=== PATIENT | male | born 1975 | race Caucasian/White ===

== ENCOUNTER 2017-04-05 17:42 | Emergency (ER) | payer BC ==
[~2017-04-05] VITALS: Ht 182.9 cm; Wt 84.0 kg
[~2017-04-05 17:42] MED LIST: BACTRIM DS 8001 TAB PO; CEPHALEXIN500 M1 PO; NORCO 325 MG-7.1 TAB PO
[2017-04-05 17:44] VITALS: TEMP 98.1
[2017-04-05 19:03] LABS: BASO # 0.1 (0.0-0.2); BASO % 0.6 % (0.0-2.0); EOS # 0.2 (0.0-0.7); GRAN # 10.2 (1.4-6.5); GRAN % 62.8 % (42.2-75.2); HEMATOCRIT 51.8 % (42.0-52.0); LYMPH # 4.7 (1.2-3.4); MEAN CELL VOLUME 82 fl (80.0-100.0); MEAN CORPUSCULAR HEMOGLOBIN 30 pg (27.0-31.0); MEAN CORPUSCULAR HGB CONC 37 g/dl (33.0-37.0); MEAN PLATELET VOLUME 8.6 fl (7.4-10.4); MONO % 6.2 % (1.7-9.3); PLATELET COUNT 380 K/mm3 (130-400); REDCELL DISTRIBUTION WIDTH-CV 12.2 % (11.5-14.5); WHITE BLOOD COUNT 16.2 K/mm3 (4.8-10.8)
[2017-04-05 19:04] LABS: HEMOGLOBIN 18.9 g/dl (13.5-18.0)
[2017-04-05 19:13] LABS: ADJUSTED CALCIUM 9.8 mg/dL (8.4-10.2); ALBUMIN 5.7 gm/dL (3.5-5.0); BILIRUBIN,TOTAL 1.2 mg/dL (0.0-1.0); CALCIUM 11.2 mg/dL (8.4-10.2); CREATININE, serum 2.58 mg/dL (0.66-1.25); POTASSIUM 3.6 mmol/L (3.4-5.0); TOTAL PROTEIN 9.6 gm/dL (6.4-8.2)
[2017-04-05 20:57] LABS: HYALINE CAST >12 /lpf; PH 5 (5-8); SQUAMOUS EPITHELIAL 0-2 /hpf; URINE APPEARANCE Clear; URINE BACTERIA None Seen /hpf; URINE BILIRUBIN Negative (NEGATIVE); URINE BLOOD 1+ (NEGATIVE); URINE COLOR Yellow; URINE GLUCOSE Negative (NEGATIVE); URINE KETONE Trace (NEGATIVE); URINE RBC 0-2 /hpf; URINE UROBILINOGEN Negative (NEGATIVE); URINE WBC 0-2 /hpf
[2017-04-05 21:32] VITALS: BP 128/92; PULSE 97
== END 2017-04-05 21:32 | disposition home or self-care (01) ==
LOC: COL.ER 17:42
PROVIDERS: Emergency Medicine
DX: E86.0 Dehydration (principal); R10.84 Generalized abdominal pain; N28.9 Disorder of kidney and ureter, unspecified; T67.9XXA Effect of heat and light, unspecified, initial encounter; X30.XXXA Exposure to excessive natural heat, initial encounter
CPT/HCPCS: J3360; J7030

== ENCOUNTER 2018-10-03 08:56 | Emergency (ER) | payer BC ==
[~2018-10-03] VITALS: Ht 182.9 cm; Wt 84.1 kg
[2018-10-03 09:29] LABS: COLLECTION METHOD CLEAN CATCH
[2018-10-03 10:01] LABS: PH 7 (5-8); URINE APPEARANCE Clear; URINE COLOR Yellow
[2018-10-03 10:02] LABS: SQUAMOUS EPITHELIAL 0-2 /hpf; URINE BACTERIA None Seen /hpf; URINE BILIRUBIN Negative (NEGATIVE); URINE BLOOD 1+ (NEGATIVE); URINE GLUCOSE Negative (NEGATIVE); URINE KETONE Negative (NEGATIVE); URINE LEUKOCYTE ESTERASE Negative (NEGATIVE); URINE NITRATE Negative (NEGATIVE); URINE PROTEIN(semi-quant) Negative (NEGATIVE); URINE RBC None Seen /hpf; URINE UROBILINOGEN Negative (NEGATIVE)
[2018-10-03 10:10] LABS: BASO # 0.1 (0.0-0.2); BASO % 0.7 % (0.0-2.0); EOS # 0.3 (0.0-0.7); EOS % 1.5 % (0-4.0); GRAN # 14.7 (1.4-6.5); GRAN % 73.9 % (42.2-75.2); HEMATOCRIT 49.2 % (42.0-52.0); HEMOGLOBIN 16.7 g/dl (13.5-18.0); LYMPH # 3.8 (1.2-3.4); LYMPH % 19.2 % (20.0-51.0); MEAN CELL VOLUME 88 fl (80.0-100.0); MEAN CORPUSCULAR HEMOGLOBIN 30 pg (27.0-31.0); MEAN CORPUSCULAR HGB CONC 34 g/dl (33.0-37.0); MEAN PLATELET VOLUME 8.5 fl (7.4-10.4); MONO # 0.8 (0.1-0.6); MONO % 4.2 % (1.7-9.3); PLATELET COUNT 344 K/mm3 (130-400); REDCELL DISTRIBUTION WIDTH-CV 12.6 % (11.5-14.5)
[2018-10-03 10:33] LABS: ALBUMIN 4.7 gm/dL (3.5-5.0); BILIRUBIN,TOTAL 0.5 mg/dL (0.0-1.0); C-REACTIVE PROTEIN 1.1 mg/dL (0.0-0.9); CREATININE, serum 0.89 mg/dL (0.66-1.25); POTASSIUM 4.8 mmol/L (3.4-5.0); TOTAL PROTEIN 7.9 gm/dL (6.4-8.2)
[2018-10-03 13:23] LABS: TRICYCLIC ANTIDEPRESS URINE NEGATIVE
[2018-10-03] MEDS ORDERED: CEPHALEXIN500 M1 PO (14:29)
[2018-10-03] MEDS ORDERED: DOXYCYCLINE 10100 MG PO (14:29)
[2018-10-03] MEDS ORDERED: PERCOCET 325 MG1 TA2 PO (14:29)
[2018-10-03] MEDS ORDERED: ZOFRAN ODT4 MG PO (14:29)
[2018-10-03 16:13] VITALS: BP 128/79; PULSE 68; TEMP 98.8
== END 2018-10-03 14:47 | disposition home or self-care (01) ==
LOC: COL.ER 08:56
PROVIDERS: Emergency Medicine
DX: S02.2XXA Fracture of nasal bones, initial encounter for closed fracture (principal); L03.213 Periorbital cellulitis; F12.10 Cannabis abuse, uncomplicated; F17.210 Nicotine dependence, cigarettes, uncomplicated; W22.8XXA Striking against or struck by other objects, initial encounter; Y92.009 Unspecified place in unspecified non-institutional (private) residence as the place of occurrence of the external cause
CPT/HCPCS: J1170; J2060; J7030; Q9967

== ENCOUNTER 2018-10-04 16:40 | Emergency (ER) | payer BC ==
[~2018-10-04] VITALS: Ht 182.9 cm; Wt 80.9 kg
[~2018-10-04 16:40] MED LIST changes: +DOXYCYCLINE 10100 MG PO; +PERCOCET 325 MG1 TA2 PO; +ZOFRAN ODT4 MG PO
[2018-10-04 16:45] VITALS: TEMP 98.4
[2018-10-04 17:33] VITALS: BP 136/102; PULSE 78
== END 2018-10-04 17:34 | disposition home or self-care (01) ==
LOC: COL.ER 16:40
DX: L02.01 Cutaneous abscess of face (principal)

== ENCOUNTER 2020-05-31 16:47 | Emergency (ER) | payer OTHER, BC ==
[~2020-05-31] VITALS: Ht 182.9 cm; Wt 84.1 kg
[2020-05-31 16:53] VITALS: TEMP 97.4
[2020-05-31 18:14] VITALS: BP 138/88; PULSE 92
== END 2020-05-31 18:28 | disposition home or self-care (01) ==
LOC: COL.ER 16:47
DX: S00.03XA Contusion of scalp, initial encounter (principal); S06.0X9A Concussion with loss of consciousness of unspecified duration, initial encounter; W01.198A Fall on same level from slipping, tripping and stumbling with subsequent striking against other object, initial encounter; Y92.009 Unspecified place in unspecified non-institutional (private) residence as the place of occurrence of the external cause; Y93.89 Activity, other specified